=== PATIENT | female | born 1955 | race Caucasian/White ===

== ENCOUNTER 2023-10-19 19:10 | Emergency (ER) | payer MEDICARE, BC, SELFPAY ==
[2023-10-19 19:21] VITALS: BP 122/62
--- NOTE | 2023-10-19 20:11 | ED.GENMED ---
History of Present Illness
General
Chief Complaint: Nasal Problem
Source: patient
Exam Limitations: none
Time Seen by Provider: 10/19/23 20:05
Travel History
Have you had any contact with someone who has COVID-19?: No
Do you have any symptoms of coronavirus? Fever > 100 degrees, chills, cough, shortness of breath, sore throat, loss of taste or smell, muscle aches, or headache?: No
History of Present Illness
History of Present Illness:
See MDM
Past History
Past History
ED Past Medical History: Cancer (Thyroid), GERD and Hypercholesterolemia
ED Past Surgical History: Gynecological and Orthopedic
Social History
Tobacco: Non-smoker
Alcohol: None
Phy Exam
Physical Exam
Physical Exam:
See MDM
Course
Orders/Labs/Results
Orders:
Orders
10/19/23 19:29
CT Facial Bones W/o Iv Contras Urgent
Comment:
Reason For Exam: injury and pain
Head wo Contrast CT [CT Head W/o Iv Contrast] Urgent
Comment:
Reason For Exam: injury
10/19/23 20:11
Acetaminophen [Tylenol] 650 mg PO NOW STA
10/19/23 21:58
Amoxicillin 875 mg/Clav 125 mg [Augmentin 875 mg/125 mg] 1 tablet PO NOW STA
Vital Signs
Initial and Last Documented VS:
Initial Vital Signs
Temp Pulse Resp BP Pulse Ox
98.3 F 80 18 122/62 99
10/19/23 19:21 10/19/23 19:21 10/19/23 19:21 10/19/23 19:21 10/19/23 19:21
Last Documented Vital Signs
Temp Pulse Resp BP Pulse Ox
98.3 F 80 18 122/62 99
10/19/23 19:21 10/19/23 19:21 10/19/23 19:21 10/19/23 19:21 10/19/23 19:21
MDM/Problems Addressed
Differential Diagnosis Includes:
HPI and MDM Narrative:
68-year-old female presenting with nasal swelling and bleeding. Patient was at her grandson's baseball game and she was hit in the face with a ball. Patient denies loss of consciousness. She complains of nasal congestion and blood from both naris.
On exam, she is comfortable appearing but she has ice over her face. There is small amount of blood oozing to both naris. No septal hematoma. Ecchymosis noted to base of bilateral medial orbit. EOMI
Physical exam
General: Well appearing and non-toxic
HEENT: protecting airway. Scratches noted to both nares bilaterally. No septal hematoma. EOMI
Neck: appears supple
CV: No evidence of cyanosis
Resp: No accessory muscle use
Abd: Non-distended
Extremities: No deformities
Neuro: alert
Psych: Normal affect
Skin: Intact
Problems Addressed including Acute and Chronic Conditions affecting care:
1. Nasal injury
Acuity: acute
Prognosis: stable
Details: Will obtain x-ray to look for evidence of fracture. Given the bleeding and if there is fracture, we will cover with Augmentin
Updates
CT consistent with comminuted nasal bone fracture. There is blood in the maxillary sinus. Will start Augmentin
Differential Diagnosis (but not limited to): Nasal contusion, nasal fracture
Testing considered: CT neck but she denies neck pain
Drug therapy (if applicable): OTC meds, please see d/c instruction regarding Rx drugs
Amount and/or Complexity of Data Reviewed
Clinical info obtained from: Patient
External data reviewed: N/A
Labs I independently reviewed (but not limited to): N/A
Radiology: The CT scan was personally and independently reviewed. In addition, official CT report reviewed.
Pulse Ox: not hypoxic
EKG independently reviewed: N/A
[employer] Supervisor: N/A
Critical Care: N/A
Risk of Complication:
Social Determinants of health: Good social support
Discussed with other providers: N/A
Escalation of Care includes Admit/Obs: After being observed in the Emergency Department, pt stable for discharge.
Occasional wrong word or 'sound a like' substitutions may have occurred due to the inherent limitations of voice recognition software. Read the chart carefully and recognize, using context, where substitutions have occurred.
*Critical Care Note
Total Time (30-74mins, 75-104mins- exclusive of procedures): Not Applicable
ED Attending Note
-
Portions of this chart may have been created with voice recognition software.� Occasional wrong word or��sound alike� substitutions may have occurred due to the inherent limitations of voice recognition software.
Discharge Plan
Departure
Patient Disposition: Home (Routine Discharge)
Date of Disposition: 10/19/23
Time of Disposition: 22:08
Patient with high blood pressure during this ER visit?: No
Discharge Problem:
Fracture of nasal bone
Prescriptions:
New
amoxicillin-pot clavulanate 875-125 mg tablet
1 tab PO BID Qty: 14 0RF
Referrals:
Sean Cramer MD [Active] -
UNKNOWN - PT DOES,NOT KNOW [Family Provider] -
Activity Restrictions/Additional Instructions:
Please return for any worsening symptoms.
You may return at any time if you have further concerns.
Please follow up with your ENT doctor at the first available appointment, preferably this week.
Thank you for choosing [facility].
Interventions
Interventions:
*Risk Screen - Suicide Last Done: 10/19/23 19:21
*General Assessment Last Done: 10/19/23 19:21
*Neglect/Abuse Screening Last Done: 10/19/23 19:21
*ED COVID-19 Vaccine History Last Done: 10/19/23 20:14
Discharge Date and Time
Print Language: ITALIAN
[2023-10-19 20:14] VITALS: BMI 19.4
[2023-10-19] MEDS: TYLENOL 650 MG PO (20:14)
[2023-10-19] MEDS: AUGMENTIN 875 MG/125 MG 1 TABLET PO (22:13)
== END 2023-10-19 22:26 | disposition home or self-care (01) ==
LOC: EMR 19:10
PROVIDERS: EMERGENCY PHYSICIAN Student in an Organized Health Care Education/Training Program
DX: S02.2XXA Fracture of nasal bones, initial encounter for closed fracture (principal); W21.03XA Struck by baseball, initial encounter
CPT/HCPCS: 99284; 70450; 70486